=== PATIENT | female | born 1935 | race Caucasian/White ===

== ENCOUNTER → 2017-04-09 | Outpatient (CLI) | payer MEDICARE ==
[~2017-04-09] MED LIST: ATOR10 PO; HYDCHL12.5 PO; HYDR-86; LISHYD1012 PO; LOSA25 PO; MELA3 PO; OXYB5 PO; Omeprazole20 M1; SERT50 PO
== END ==
LOC: LAB 17:00
DX: N39.0 Urinary tract infection, site not specified (principal)
CPT/HCPCS: 87077; 87086; 87186

== ENCOUNTER 2018-03-24 10:03 | Emergency (ER) | payer MEDICARE ==
[~2018-03-24] VITALS: Ht 157.5 cm; Wt 46.7 kg
[2018-03-24] MEDS ORDERED: HYDR1TAB94 PO (10:42)
[2018-03-24] MEDS ORDERED: Norco 5-325 Ta1 EACH PO (12:19)
== END 2018-03-24 12:26 | disposition home or self-care (01) ==
LOC: ER 10:03
DX: M25.551 Pain in right hip (principal); G89.29 Other chronic pain; K40.90 Unilateral inguinal hernia, without obstruction or gangrene, not specified as recurrent; Z79.891 Long term (current) use of opiate analgesic; Z85.3 Personal history of malignant neoplasm of breast; Z87.891 Personal history of nicotine dependence
CPT/HCPCS: 76857; 99283-25

== ENCOUNTER 2018-05-07 09:04 | Day surgery (SDC) | payer MEDICARE ==
[~2018-05-07] VITALS: Ht 157.5 cm; Wt 51.0 kg
[~2018-05-07 09:04] MED LIST changes: +HYDR1TAB94 PO; +Hydrocodone-Ap1 EA23 PO; +Norco 5-325 Ta1 EACH PO
--- NOTE | 2018-05-07 09:35 | NUR ---
Ambulatory in Day Surgery Surgical site prepped with 2% Chlorhexidine cloth wipe. History, Chart, Medications and Allergies reviewed before start of procedure.Lungs clear T/O to Auscultation. Patient confirms NPO status and agrees with scheduled surgery. Pre-Op teaching done. Pt verbalizes understanding. Patient reports completing Chlorhexadine shower X2 prior to admission to hospital.
--- NOTE | 2018-05-07 17:28 | NUR ---
1725-DB/COUGH ENCOURAGED WITH ABD SPLINTING.
--- NOTE | 2018-05-07 17:50 | NUR ---
pt arrived to unit via stretcher, a/0 x 4, pleasant/cooperative, 3l nc with SPO2 93%. post op vs commenced. pt transferred herself to bed with assistance. pt ambulated to the bathroom with assistance, one unmeasured void
--- NOTE | 2018-05-08 05:08 | NUR ---
SHIFT SUMMARY: PT POD #1 FOR BILATERAL HERNIA REPAIR. A&O X4, VS WNL. O2 WEANED DOWN FROM 3L TO RA. SATS MAINTAINED AT 93%. PT DENIES SOB. TCDB AND IS ENCOURAGED T/O SHIFT. OOB TO BATHROOM SEVERAL TIMES. SBA X1. GILES ACTIVITY WELL. PAIN MANAGED WITH 1 NORCO Q4 PER EMAR. DENIES N/V. GILES CLR LIQ DIET. SALINE LOCKED. 3 GAUZE SITES TO ABD ARE C/D/I. PLAN FOR PT TO DISCHARGE HOME TODAY.
--- NOTE | 2018-05-08 15:49 | NUR ---
SHIFT SUMMARY: PT IS A SBA TO RESTROOM. STEADY GAIT. VSS. A&OX4. SATS >90% ON RA. DENIES SOB/CP. DENIES N/V. REPORTS PAIN HAS BEEN WELL CONTROLLED WITH 1 PO NORCO. DRESSINGS C/D/I. HARP REPAIRER FACILITATED D/C TO HOME.
== END 2018-05-08 13:30 | disposition home or self-care (01) ==
LOC: ORSCMMR 09:04 → ORD 11:00 → SURS 17:25 → ORSCMMR 05-08 13:30
PROVIDERS: Surgery
PROC: 8E0W4CZ Robotic Assisted Procedure of Trunk Region, Percutaneous Endoscopic Approach (ICD-10-PCS; principal; 2018-05-07 11:00)
PROC: 0YUA4JZ Supplement Bilateral Inguinal Region with Synthetic Substitute, Percutaneous Endoscopic Approach (ICD-10-PCS; principal; 2018-05-07 11:00)
DX: K40.20 Bilateral inguinal hernia, without obstruction or gangrene, not specified as recurrent (principal); I10 Essential (primary) hypertension; K21.9 Gastro-esophageal reflux disease without esophagitis; E78.00 Pure hypercholesterolemia, unspecified; Z87.891 Personal history of nicotine dependence; Z79.899 Other long term (current) drug therapy
CPT/HCPCS: 49650; S2900; A9270-GY; C1781; J0690; J1100; J2250; J2405; J2710; J3010; J7120

== ENCOUNTER → 2018-07-15 | Outpatient (CLI) | payer MEDICARE | END | disposition home or self-care (01) | LOC: LAB 15:01 → LAB SHORT 15:01 | DX: R30.0 Dysuria (principal) | CPT/HCPCS: 87077; 87086; 87186 ==

== ENCOUNTER 2024-06-13 16:33 | Observation (INO) | payer OTHER ==
[~2024-06-13] VITALS: Ht 157.5 cm; Wt 45.0 kg
[~2024-06-13 16:33] MED LIST changes: +CEPH500 PO; +Percocet 5-3251 EACH PO
[2024-06-13 17:15] LABS: BASOPHILS ABSOLUTE AUTO 0.05 K/mm3 (0.00-0.23); BASOPHILS PERCENT AUTO 0 % (0-2); EOSINOPHILS ABSOLUTE AUTO 0.05 K/mm3 (0.00-0.68); EOSINOPHILS PERCENT AUTO 0 % (0-6); Hematocrit 42.2 % (33.0-51.0); Hemoglobin 14.2 g/dL (11.5-16.0); IMMATURE GRAN ABSOLUTE AUTO 0.37 K/mm3 (0.00-0.10); IMMATURE GRAN PERCENT AUTO 2 % (0-1); LYMPHOCYTES ABSOLUTE AUTO 2.28 K/mm3 (0.84-5.20); LYMPHOCYTES PERCENT AUTO 14 % (21-46); MONOCYTES ABSOLUTE AUTO 1.21 K/mm3 (0.16-1.47); MONOCYTES PERCENT AUTO 8 % (4-13); Mean Corpuscular HGB 31.6 pg (26.0-34.0); Mean Corpuscular HGB Conc 33.6 g/dL (31.5-36.5); Mean Corpuscular Volume 94 fL (80-100); Mean Platelet Volume 8.7 fL (9.1-12.4); NEUTROPHILS ABSOLUTE AUTO 12.02 K/mm3 (1.96-9.15); NEUTROPHILS PERCENT AUTO 75 % (41-73); Platelet Count 424 K/mm3 (150-400); RDW Standard Deviation 41.7 fL (35.1-46.3); White Blood Cell Count 15.98 K/mm3 (4.00-11.30)
[2024-06-13 17:48] LABS: Albumin, Blood 3.7 g/dL (3.4-5.0); Albumin/Globulin Ratio 1.1 (0.8-1.8); Bilirubin, Total 0.5 mg/dL (0.1-1.0); Bun/Creatinine Ratio 61.8 (12.0-20.0); Calcium, Blood 9.3 mg/dL (8.5-10.1); Creatinine, Blood 0.92 mg/dL (0.40-1.00); Globulin, Blood 3.3 g/dL (2.2-4.0); Potassium, Blood 4.8 mmol/L (3.5-5.5)
[2024-06-13] MEDS ORDERED: Lactated Ringer's 1,000 ML IV SCH ×2 (20:30→23:05)
[2024-06-13] MEDS ORDERED: LISI20 PO (20:39)
[2024-06-13] MEDS ORDERED: Amlodipine Bes2.5 MG PO (20:39)
[2024-06-13] MEDS ORDERED: Lisinopril 20 MG Tab PO SCH (21:00)
[2024-06-13] MEDS ORDERED: AmLODIPine Besylate 5 MG Tab PO SCH (21:00)
--- NOTE | 2024-06-13 21:20 | NUR ---
ADMISSION NOTE PT ARRIVED FROM ER TO RM 349 AT 0. PT WAS AOX4, CALM AND COOPERATIVE. EDUCATED PT HOUSEKEEPER/LAUNDRY ASSISTANT LIGHT USE, SPARKLE WHEN IN NEED OF TOILETING. PT VERBALIZED UNDERSTANDING. PT WAS AMBULATORY, STANDBY ASSIST. BED LOCKED IN LOWEST POSITION. THIS RN TO ASSUME CARE.
[2024-06-13 21:22] VITALS: BP 159/81
[2024-06-14 01:01] VITALS: BP 122/62
--- NOTE | 2024-06-14 05:26 | NUR ---
SHIFT SUMMARY PT HAS BEEN RESTING COMFORTABLY IN BED OVERNIGHT SINCE ADMISSION AT 0. PT HAS BEEN PLEASANT, AOX4, CALM AND COOPERATIVE. SHE HAS BEEN STANDBY ASSIST TO RESTROOM. PT HAS BEEN ON TELEMETRY WELL. PT'S ONLY COMPLAINT IS DIFFICULTY SLEEPING. OTHERWISE, PT HAS HAD UNEVENTFUL NIGHT.
[2024-06-14 06:14] LABS: BASOPHILS ABSOLUTE AUTO 0.03 K/mm3 (0.00-0.23); BASOPHILS PERCENT AUTO 0 % (0-2); EOSINOPHILS ABSOLUTE AUTO 0.08 K/mm3 (0.00-0.68); EOSINOPHILS PERCENT AUTO 1 % (0-6); Hematocrit 36.5 % (33.0-51.0); Hemoglobin 12.3 g/dL (11.5-16.0); IMMATURE GRAN ABSOLUTE AUTO 0.19 K/mm3 (0.00-0.10); IMMATURE GRAN PERCENT AUTO 2 % (0-1); LYMPHOCYTES ABSOLUTE AUTO 2.08 K/mm3 (0.84-5.20); LYMPHOCYTES PERCENT AUTO 18 % (21-46); MONOCYTES ABSOLUTE AUTO 0.94 K/mm3 (0.16-1.47); MONOCYTES PERCENT AUTO 8 % (4-13); Mean Corpuscular HGB 31.1 pg (26.0-34.0); Mean Corpuscular HGB Conc 33.7 g/dL (31.5-36.5); Mean Corpuscular Volume 92 fL (80-100); Mean Platelet Volume 8.5 fL (9.1-12.4); NEUTROPHILS ABSOLUTE AUTO 8.08 K/mm3 (1.96-9.15); NEUTROPHILS PERCENT AUTO 71 % (41-73); Platelet Count 332 K/mm3 (150-400); RDW Coefficient Variation 11.9 % (11.7-14.2); RDW Standard Deviation 40.7 fL (35.1-46.3); Red Blood Cell Count 3.96 M/mm3 (3.80-5.20)
[2024-06-14 06:46] LABS: Alanine Aminotransfer (ALT/SGP 34 U/L (12-78); Albumin, Blood 3.1 g/dL (3.4-5.0); Albumin/Globulin Ratio 1.1 (0.8-1.8); Alk Phos 71 U/L (50-136); Anion Gap 11 mmol/L (3-11); Aspartate Aminotrans (AST/SGOT 21 U/L (12-37); Bilirubin, Total 0.4 mg/dL (0.1-1.0); Blood Urea Nitrogen 41 mg/dL (8-24); Bun/Creatinine Ratio 61.7 (12.0-20.0); CHOL/HDL RATIO 3.6; CO2, Blood 20 mmol/L (21-32); Calcium, Blood 8.5 mg/dL (8.5-10.1); Chloride, Blood 109 mmol/L (98-108); Cholesterol 237 mg/dL (50-200); Creatinine, Blood 0.66 mg/dL (0.40-1.00); Globulin, Blood 2.9 g/dL (2.2-4.0); Glomerular Filtration Rate 84 (60-); Glucose, Blood 105 mg/dL (70-99); HDL Cholesterol 66 mg/dL (>39); LDL/HDL RATIO 2.1; Low Density Lipoprotein Chol 136 mg/dL (0-110); Magnesium, Blood 2.2 mg/dL (1.6-2.4); Potassium, Blood 4.6 mmol/L (3.5-5.5); Sodium, Blood 135 mmol/L (136-145); Triglycerides 175 mg/dL (30-160); Very Low Density Lipoprot Chol 35 mg/dL (6-32)
[2024-06-14 07:37] VITALS: BP 160/60
--- NOTE | 2024-06-14 07:38 | NUR ---
THIS RN ARRIVES TO UNIT TO ASSUME CARE OF PT - PER REPORT PT TO HAVE STRESS TEST TODAY. CUP OF COFFEE NOTED ON PT TABLE, PT REPORTS TAKING A FEW SIPS BETWEEN 0500 AND 0530. RN UPDATED DOMINGO WHO REPORTS THEY CAN COMPLETE RESTING PORTION OF STRESS TEST BUT CANNOT COMPLETE ENTIRITY OF STRESS TEST DUE TO COFFEE CONSUMPTION. THIS RN UPDATED PT REGARDING PLAN AND NEED FOR NPO STATUS/NO CAFFIENE OR CHOCOLATE. SIGNS PLACED ON PT DOOR, GRASS CUTTER UPDATED. WILL UPDATE PROVIDER DURING ROUNDS.
[2024-06-14] MEDS ORDERED: Atorvastatin 40 MG Tab PO SCH (09:00)
[2024-06-14] MEDS ORDERED: Enoxaparin 30 MG/0.3 ML SYR SC SCH (09:00)
[2024-06-14] MEDS ORDERED: Mag Hydrox/Al Hydrox/Simeth 18 ML,Lidocaine 2% Viscous Soln 9 ML,Atropine/Scopalam/Hyos... PO ONE (11:25)
--- NOTE | 2024-06-14 16:11 | NUR ---
SHIFT SUMMARY NO ACUTE CHANGES, A/Ox4, ABLE TO MAKE NEEDS KNOWN. SBA TO BATHROOM. TELE IN PLACE - S.TACH @ 110. ECHO COMPLETED TODAY. RESTING STRESS TEST COMPLETED. PT TO BE NPO AFTER MIDNIGHT TO COMPLETE STRESS TEST TOMORROW. NO CAFFIENE OR CHOCOLATE AFTER 0 ON 06/14/24. PT DENIES PAIN. PT DENIES ANY CHEST PAIN T/O SHIFT. PT CURRENTLY RESTING IN HOSPITAL BED WITH BED IN LOWEST POSITION AND CALL LIGHT WITHIN REACH.
[2024-06-14 16:43] VITALS: BP 123/61
[2024-06-14 20:31] VITALS: BP 141/64
[2024-06-15 00:15] VITALS: BP 126/70
[2024-06-15 04:02] VITALS: BP 136/62
--- NOTE | 2024-06-15 04:48 | NUR ---
SHIFT SUMMARY PT HAS BEEN RESTING COMFORTABLY OVERNIGHT. PT HAS BEEN AOX4, CALM AND COOPERATIVE. PT HAS BEEN ON TELEMETRY. SHE IS AWAITING TESTS IN THE AM, DESIRES TO GO BACK HOME. NO COMPLAINTS OVERNIGHT. NO ACUTE EVENTS OVERNIGHT.
[2024-06-15 05:43] LABS: BASOPHILS ABSOLUTE AUTO 0.03 K/mm3 (0.00-0.23); BASOPHILS PERCENT AUTO 0 % (0-2); EOSINOPHILS ABSOLUTE AUTO 0.13 K/mm3 (0.00-0.68); EOSINOPHILS PERCENT AUTO 1 % (0-6); Hematocrit 36.4 % (33.0-51.0); Hemoglobin 12.3 g/dL (11.5-16.0); IMMATURE GRAN ABSOLUTE AUTO 0.12 K/mm3 (0.00-0.10); IMMATURE GRAN PERCENT AUTO 1 % (0-1); LYMPHOCYTES ABSOLUTE AUTO 2.23 K/mm3 (0.84-5.20); LYMPHOCYTES PERCENT AUTO 22 % (21-46); MONOCYTES PERCENT AUTO 10 % (4-13); Mean Corpuscular HGB 31.1 pg (26.0-34.0); Mean Corpuscular HGB Conc 33.8 g/dL (31.5-36.5); Mean Corpuscular Volume 92 fL (80-100); Mean Platelet Volume 8.2 fL (9.1-12.4); NEUTROPHILS ABSOLUTE AUTO 6.58 K/mm3 (1.96-9.15); NEUTROPHILS PERCENT AUTO 65 % (41-73); Platelet Count 310 K/mm3 (150-400); RDW Coefficient Variation 11.9 % (11.7-14.2); RDW Standard Deviation 40.3 fL (35.1-46.3); Red Blood Cell Count 3.95 M/mm3 (3.80-5.20); White Blood Cell Count 10.09 K/mm3 (4.00-11.30)
[2024-06-15 06:08] LABS: Albumin, Blood 2.9 g/dL (3.4-5.0); Bilirubin, Total 0.5 mg/dL (0.1-1.0); Bun/Creatinine Ratio 49.9 (12.0-20.0); Creatinine, Blood 0.7 mg/dL (0.40-1.00); Potassium, Blood 5.3 mmol/L (3.5-5.5); Total Protein, Blood 5.9 g/dL (6.4-8.2)
[2024-06-15 07:16] VITALS: BP 129/59
[2024-06-15] MEDS ORDERED: Caffeine Citrated 60 MG/3 ML Vial ONE (07:46)
[2024-06-15] MEDS ORDERED: Regadenoson 0.4 MG/5 ML SYRINGE ONE (07:46)
[2024-06-15] MEDS ORDERED: ATOR40TA PO (11:41)
--- NOTE | 2024-06-15 12:22 | NUR ---
SHIFT SUMMARY AND DISCHARGE PATIENT ALERT AND INTERACTIVE. PATIENT DENIES ANY PAIN. PATIENT HAD STRESS TEST AND FOLLOW UP NUC MED STUDY. PATIENT DISCHARGED TO HOME. DISCHARGE INSTRUCTIONS REVIEWED WITH PATIENT AND DAUGHTER. PATIENT REQUESTING TO AMBULATE OUT. DAUGHTER STATING SHE WILL WALK WITH HER. PATIENT INDEPENDENTLY AMBULATING. ROOM CHECK DONE PRIOR TO DISCHARGE. BELONGINGS SENT HOME WITH PATIENT.
== END 2024-06-15 12:10 | disposition home or self-care (01) ==
LOC: ER 16:33 → MEDS 16:34
PROVIDERS: Emergency Medicine; Student in an Organized Health Care Education/Training Program; ADMIT Family Medicine
DX: I20.0 Unstable angina (principal); E87.20 Acidosis, unspecified; D75.838 Other thrombocytosis; N19 Unspecified kidney failure; I10 Essential (primary) hypertension; E87.1 Hypo-osmolality and hyponatremia; D72.829 Elevated white blood cell count, unspecified; E78.5 Hyperlipidemia, unspecified; Z66 Do not resuscitate; Z87.891 Personal history of nicotine dependence; Z88.8 Allergy status to other drugs, medicaments and biological substances; Z79.899 Other long term (current) drug therapy
CPT/HCPCS: 36415; 71045; 78452; 80053; 80061; 83036; 83735; 84443; 84484; 85025; 93005; 93010; 93017; 93306; 96360; 96361; 96372; 99285-25; A9270; A9500; G0378; J0706; J1650; J2785; J7120

== ENCOUNTER 2024-08-11 08:34 | Day surgery (SDC) | payer OTHER ==
[~2024-08-11] VITALS: Ht 157.5 cm; Wt 44.3 kg
[~2024-08-11 08:34] MED LIST changes: +ATOR40TA PO; +Amlodipine Bes2.5 MG PO; +LISI20 PO
[2024-08-11] MEDS ORDERED: VITAMIN D (09:11)
[2024-08-11] MEDS ORDERED: Vitamin C100 M1 PO (09:11)
[2024-08-11] MEDS ORDERED: ZINC15 PO (09:12)
--- NOTE | 2024-08-11 09:44 | NUR ---
08/11/24 0944 Tom Riojas TRANSPORTED PT TO IMAGING VIA FOR SENTINAL.
[2024-08-11] MEDS ORDERED: CeFAZolin Sodium 2,000 MG VIAL ONE (09:50)
[2024-08-11] MEDS ORDERED: Ondansetron HCl 2 MG / ML 2ML Vial ONE (10:25)
[2024-08-11] MEDS ORDERED: Dexamethasone Sod Phos 10 MG/ML 1ML VIAL ONE (10:25)
[2024-08-11] MEDS ORDERED: FentaNYL Citrate 50 MCG/ML 2 ML Injection ONE (10:26)
[2024-08-11] MEDS ORDERED: Phenylephrine HCl 100 MCG/ML-NS 10MLSYR (1MG/10ML) ONE (11:04)
[2024-08-11] MEDS ORDERED: Bupivacaine 0.5% HCl 5 MG/ML 30MLVIAL XX ONE ×2 (11:16)
--- NOTE | 2024-08-11 12:06 | NUR ---
08/11/24 1206 Lilly Meléndez FROM RADIOLOGY CALLED, PER DR. SANCHEZ SPECIMEN LOOKS GOOD.
--- NOTE | 2024-08-11 12:39 | NUR ---
08/11/24 Mally9 Sharon Mcgraw PT TO PACU A&O DURING REPORTS, VSS. DSG CDI. R LUNGS CLEAR, LEFT LUNGS DIMLY COARSE. READY FOR STEPDOWN. REPORT TO HARMONY DEWITT FOR LUNCH COVERAGE.
[2024-08-11 13:17] VITALS: BP 131/81
== END 2024-08-11 13:14 | disposition home or self-care (01) ==
LOC: ORSCSDS 08:34 → NM 10:00 → ORSCSDS 13:14
PROVIDERS: Surgery
PROC: 07B60ZX Excision of Left Axillary Lymphatic, Open Approach, Diagnostic (ICD-10-PCS; principal; 2024-08-11 10:30)
PROC: 0HBU0ZZ Excision of Left Breast, Open Approach (ICD-10-PCS; principal; 2024-08-11 10:30)
DX: C50.812 Malignant neoplasm of overlapping sites of left female breast (principal); D36.0 Benign neoplasm of lymph nodes; I10 Essential (primary) hypertension; Z79.899 Other long term (current) drug therapy; Z17.1 Estrogen receptor negative status [ER-]; Z17.22 Progesterone receptor negative status; Z17.32 Human epidermal growth factor receptor 2 negative status
CPT/HCPCS: 38792; 76098; 88307; 88342; A9520; J0690; J1100; J2371; J2405; J2704; J3010; J7120; Q9968